=== PATIENT | male | born 1995 | race Caucasian/White ===

== ENCOUNTER 2016-12-18 17:56 | Emergency (ER) | payer OTHER ==
[~2016-12-18] VITALS: Ht 180.3 cm; Wt 79.0 kg
[~2016-12-18 17:56] MED LIST: IBUP600T26 PO; Z.0.NO CURRENT MEDS
[2016-12-18 17:59] VITALS: BP 129/73; PULSE 110; RESP 20; TEMP 97.8; O2SAT 96
[2016-12-18] MEDS ORDERED: DICL75TA PO (18:26)
[2016-12-18] MEDS ORDERED: IBUPROFEN 800 MG TAB PO ONE (18:30)
--- NOTE | 2016-12-18 18:34 | PD ---
HPI Chief Complaint: Injury Time Seen by Provider: 18:28 Travel History International Travel<30 days: No Contact w/Intl Traveler<30days: No Traveled to known affect area: No History of Present Illness HPI 20-year-old [id number] [place] [employer] presents emergency department with complaints of left shoulder dislocation. The patient states that he has had a left shoulder dislocation in the past. He states that he occasionally gets subluxations of the shoulder but spontaneously reduces on its own. He states that he was in a training class today when his left shoulder dislocated. He states that he has not been able to reduce it. He denies any numbness, tingling or weakness. Pain is mild to moderate. Worse with movement. Some relief with holding his arm still. PFSH Past Medical History Narrative Medical Left shoulder dislocation, asthma as child Asthma: Yes Diminished Hearing: No Respiratory: Yes (ASTHMA A CHILD) Immunizations Current: Yes Tetanus Vaccination: < 5 Years Past Surgical History Surgical History: No Previous Surgery Social History Alcohol Use: No Tobacco Use: No Substance Use: No Allergies-Medications (Allergen,Severity, Reaction): Coded Allergies: No Known Allergies (Verified , 12/18/16) Reported Meds & Prescriptions Reported Meds & Active Scripts Active Diclofenac Sodium DR (Diclofenac Sodium) 75 Mg Tabdr 75 Mg PO BID Review of Systems Except as stated in HPI: all other systems reviewed are Neg Physical Exam Narrative GENERAL: This is a well-nourished, well-developed patient, in no apparent distress. SKIN: No rashes, ecchymoses or lesions. Warm and dry. HEAD: Atraumatic. Normocephalic. EYES: PERRL, EOMI, no discharge or injection. No scleral icterus. EARS: Clear NOSE: Nasal turbinates appear normal. THROAT: Mucosa pink and moist. Airway patent. NECK: Trachea midline. supple, moves head freely. LUNGS: Clear to auscultation. CV: Regular in rhythm. ABDOMEN: Soft nontender. EXT: No clubbing cyanosis or edema. Examination the left shoulder reveals an obvious anterior dislocation. Patient has anterior fullness in the pectoral region with a void glenohumeral joint. Patient has no pain in the elbow, wrist or hand. He has intact median/ulnar/radial nerves. Data Data Last Documented VS Vital Signs Date Time Temp Pulse Resp B/P Pulse Ox O2 Delivery O2 Flow Rate FiO2 12/18/16 17:59 97.8 110 20 129/73 96 Room Air Orders Shoulder, Limited(2vws) (12/18/16 18:23) Ice/Cold Pack (12/18/16 18:23) Splint Or Brace Apply/Monitor (12/18/16 18:23) Ibuprofen (Motrin) (12/18/16 18:30) Sling And Swathe (12/18/16 ) MDM Medical Decision Making Medical Screen Exam Complete: Yes Emergency Medical Condition: Yes Medical Record Reviewed: Yes Interpretation(s) Left shoulder: Positive reduction of the left shoulder dislocation. No obvious fracture identified. Differential Diagnosis MDM: High Differential diagnoses: Fracture, sprain, strain, dislocation, contusion, neurovascular injury Narrative Course Patient has reduction of the left shoulder dislocation. He is placed in a sling and swath. Ice pack applied. Motrin 800 mg by mouth. He sent for a post reduction x-ray. Procedures Procedure Narrative Left anterior shoulder dislocation: Initial attempts with the patient sitting up using scapular manipulation have been unsuccessful. The patient is then laid down in the supine position. Milch maneuver with positive reduction of the left shoulder dislocation. Patient has immediate improvement of his pain. He is placed in a sling and swath. Ice pack applied. Patient is reexamined and is neurovascular intact. Diagnosis Primary Impression: Anterior dislocation of left shoulder Qualified Code: S43.015A - Anterior dislocation of left shoulder, initial encounter Patient Instructions: General Instructions Departure Forms: Tests/Procedures, Work Release Special Instructions: No work 3 days. Then no use of the left arm until released by orthopedics. Additional Instructions: Rest. Sling and swath. Ice for the next few days. Diclofenac. Follow-up with workman's comp orthopedic next week. Return to the ER if any problems. Med/Other Pt SpecificInfo: Prescription(s) given Scripts Diclofenac Sodium DR 75 Mg Tabdr75 Mg PO BID #30 TAB Prov:Susan Ko MD 12/18/16 Disposition: 01 DISCHARGE HOME Condition: Stable Rivas Driver December 18, 2016 18:34 Rivas Driver December 18, 2016 18:34
--- NOTE | 2016-12-18 19:13 | RADRPT ---
EXAM DATE/TIME: 12/18/2016 18:35 [facility] COMPARISON: No previous studies available for comparison. INDICATIONS : Post reduction left shoulder; fall. MEDICAL HISTORY : None. SURGICAL HISTORY : None. ENCOUNTER: Initial ACUITY: 1 day PAIN SCORE: 4/10 LOCATION: Left shoulder. FINDINGS: Two view examination of the left shoulder demonstrates no evidence of fracture or dislocation. The g lenohumeral and acromioclavicular joints are maintained. Bony mineralization is normal. CONCLUSION: No fracture or subluxation demonstrated. Mark Fernández MD on December 18, 2016 at 19:11 Board Certified Radiologist. This report was verified electronically.
[2016-12-19] MEDS ORDERED: TRAM50TA PO (02:59)
== END 2016-12-18 19:39 | disposition home or self-care (01) ==
LOC: NEPK 17:56
DX: S43.015A Anterior dislocation of left humerus, initial encounter (principal); X58.XXXA Exposure to other specified factors, initial encounter; Y93.9 Activity, unspecified; Y92.89 Other specified places as the place of occurrence of the external cause; Y99.0 Civilian activity done for income or pay
CPT/HCPCS: 23650; 73030

== ENCOUNTER 2016-12-19 01:00 | Emergency (ER) | payer OTHER ==
[~2016-12-19] VITALS: Ht 180.3 cm; Wt 81.0 kg
[~2016-12-19 01:00] MED LIST changes: +DICL75TA PO; -IBUP600T26 PO; -Z.0.NO CURRENT MEDS
[2016-12-19 01:08] VITALS: BP 133/81; PULSE 85; RESP 16; TEMP 97.7; O2SAT 99
[2016-12-19] MEDS ORDERED: SODIUM CHLOR 0.9% 1000 ML INJ 1,000 ML IV ONE (02:30)
[2016-12-19] MEDS ORDERED: PROPOFOL 200 MG/20 ML AMP IV ONE (02:30)
--- NOTE | 2016-12-19 02:35 | RADHPO ---
EXAM DATE/TIME: 12/19/2016 02:19 [facility] COMPARISON: No previous studies available for comparison. INDICATIONS : Left shoulder pain post fall 1 hour ago MEDICAL HISTORY : None. SURGICAL HISTORY : None. ENCOUNTER: Initial ACUITY: 1 day PAIN SCORE: 10/10 LOCATION: Left shoulder FINDINGS: Examination of the left shoulder demonstrates no evidence of fracture. On this single is difficult to rule out an anterior-inferior shoulder dislocation Bone mineralization is normal. The acromioclavi cular joint is intact. No foreign body is identified. CONCLUSION: On this single view it is difficult to rule out an anterior-inferior shoulder dislocation. Ronaldo Cunha MD on December 19, 2016 at 2:33 Board Certified Radiologist. This report was verified electronically.
[2016-12-19 02:55] VITALS: O2SAT 100
[2016-12-19] MEDS ORDERED: TRAM50TA PO (02:59)
--- NOTE | 2016-12-19 03:03 | PD ---
HPI Chief Complaint: Musculoskeletal Complaint Time Seen by Provider: 02:04 Travel History International Travel<30 days: No Contact w/Intl Traveler<30days: No Traveled to known affect area: No History of Present Illness HPI 20-year-old male presents to the emergency department by private transportation for complaint of left shoulder pain. Patient reports he thinks he has had recurrent dislocation of the left shoulder. Patient states for some time he's had issues with recurrent subluxation of the shoulder. An patient reports that was before has had dislocation of the shoulder with spontaneous reduction. 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 Patient was seen in the emergency department [facility] and was identified to have a dislocated shoulder was reduced without difficulty. She was given prescription for ibuprofen. Patient is encouraged to follow-up with his Worker's Comp. provider for follow-up recommendation and given a sling and swath. Patient states a and swath was too large for him so he just with a sling. Patient states he fell asleep and when he awakened his left upper extremity was stretched out above him and he noticed severe pain and the step-off deformity again. Patient returns to the emergency department for recurrent dislocation of the left shoulder. Patient denies any left upper extremity numbness tingling or weakness. Patient is right-handed. Patient denies other concerns or other injuries. PFSH Past Medical History Narrative Medical Asthma, shoulder dislocation; no surgery; no tobacco use; nursing notes reviewed Asthma: Yes Diminished Hearing: No Respiratory: Yes (ASTHMA A CHILD) Immunizations Current: Yes Tetanus Vaccination: < 5 Years ?: Not Social History Alcohol Use: No Tobacco Use: No Substance Use: No Allergies-Medications (Allergen,Severity, Reaction): Coded Allergies: No Known Allergies (Verified , 12/18/16) Reported Meds & Prescriptions Reported Meds & Active Scripts Active Tramadol (Tramadol HCl) 50 Mg Tab 50 Mg PO Q6H PRN Diclofenac Sodium DR (Diclofenac Sodium) 75 Mg Tabdr 75 Mg PO BID Review of Systems Except as stated in HPI: all other systems reviewed are Neg General / Constitutional: No: Fever, Chills HENT: No: Congestion Cardiovascular: No: Chest Pain or Discomfort Respiratory: No: Shortness of Breath Gastrointestinal: No: Abdominal Pain Genitourinary: No: Flank Pain Musculoskeletal: Positive: Limited ROM (left shoulder), Pain Skin: No Rash ( left shoulder) Neurologic: No: Weakness, Paresthesia Hematologic/Lymphatic: No: Lymph Node Enlargement Physical Exam Narrative GENERAL: Well-developed well-nourished male in no acute distress no respiratory distress; gcs 15 SKIN: Warm and dry. HEAD: Normocephalic. EYES: No scleral icterus. No injection or drainage. NECK: Supple, trachea midline. No JVD or lymphadenopathy. CARDIOVASCULAR: Regular rate and rhythm without murmurs, gallops, or rubs. RESPIRATORY: Breath sounds equal bilaterally. No accessory muscle use. GASTROINTESTINAL: Abdomen soft, non-tender, nondistended. MUSCULOSKELETAL: No cyanosis, or edema. Step-off deformity left shoulder distally extremity is neurovascular tendon intact brisk capillary refill less than 2 seconds per digit radial ulnar pulses 2+ to palpation intact thumb abduction and sensation left index finger intact wrist extension and first rib space sensation intact abduction and adduction of digits and ulnar sensation. BACK: Nontender without obvious deformity. No CVA tenderness. Data Data Last Documented VS Vital Signs Date Time Temp Pulse Resp B/P Pulse Ox O2 Delivery O2 Flow Rate FiO2 12/19/16 04:21 74 16 159/82 99 12/19/16 02:55 Nasal Cannula 4.00 12/19/16 01:08 97.7 Orders ^ Saline Lock (12/19/16 02:05) NPO (12/19/16 02:05) Propofol 200 Mg/20 Ml Inj (Diprivan 200 (12/19/16 02:30) Shoulder, One View (12/19/16 ) Sodium Chlor 0.9% 1000 Ml Inj (Ns 1000 M (12/19/16 02:30) Splint Or Brace Apply/Monitor (12/19/16 02:56) Shoulder, Limited(2vws) (12/19/16 ) Sling And Swathe (12/19/16 ) MDM Medical Decision Making Medical Screen Exam Complete: Yes Emergency Medical Condition: Yes Medical Record Reviewed: Yes Interpretation(s) Last Impressions Shoulder X-Ray 12/19/16 0000 Signed Impressions: Service Date/Time: Monday, December 19, 2016 03:06 - CONCLUSION: Unremarkable limited examination of the left shoulder. Ronaldo Cunha MD Shoulder X-Ray 12/19/16 0000 Signed Impressions: Service Date/Time: Monday, December 19, 2016 02:19 - CONCLUSION: On this single view it is difficult to rule out an anterior-inferior shoulder dislocation. Ronaldo Cunha MD Differential Diagnosis dislocation, fracture, subluxation, brachial plexus injury Narrative Course Patient desirous of attempted reduction without IV access; using milch maneuver attempt was made to reduce the anterior displaced humeral head--this was unsuccessful and procedural sedation was recommended--patient agreed to procedural sedation After procedural sedation with propofol and patient an optimal position abduction external rotation maneuver was attempted without success and therefore followed up with gentle traction countertraction maneuver was readily reduced humeral head into the glenoid fossa. Imaging study was performed. No evidence for fracture and successful reduction of dislocation. Patient was maintained in a sling and swath. Patient was monitored until completely awake and stable for outpatient management. Patient is discharged in the care of significant other. Procedures Procedure Narrative After the risks and benefits were discussed the following procedure was performed: MODERATE SEDATION: The patient was placed on a director cardiac and pulse oximetry. An ambu bag and suction was immediately available at bedside. The patient was monitored by the nurse. Oxygen saturation, heart rate and blood pressure were monitored. Procedural sedation was acheived using propofol 150 mg. The patient was observed until awake and alert. Procedural Sedation time in attendance was 35 minutes. Patient was placed in optimal position supine and after acceptable procedural sedation gentle manipulation of the shoulder with abduction and external rotation was admitted attempted with some resistance therefore repositioning and maneuvering was gentle traction countertraction was performed with successful reduction of the anterior dislocation of the humeral head. Postreduction capillary refill brisk and 2 seconds and radial volar pulses 2+ to palpation. Shortly thereafter patient was able to perform 5 over 5 dye room helper strength. Postreduction film was ordered and identifies successful reduction of shoulder dislocation. No fracture identified. Procedural time was sedation 10 minutes. Diagnosis Primary Impression: Anterior dislocation of left shoulder Qualified Code: S43.015D - Anterior dislocation of left shoulder, subsequent encounter Referrals: Orthopedist call for appointment Telehealth Case Manager orthopedist Александр Pinto or your Worker's Comp Provider Patient Instructions: Moderate Sedation (ED), General Instructions Departure Forms: Tests/Procedures, Work Release Special Instructions: no work x 2days; no use of left upper extremity until Orthopedic evaluation Additional Instructions: Wear sling and swath left upper extremity until evaluated by orthopedist Take pain medication as needed as prescribed be aware may impair judgment or delay reaction time and cannot take this medication mild driving or handling heavy equipment May use [id number] ibuprofen/Advil/Motrin every 6-8 hours as needed for pain associated with inflammation Use ice intermittently to left shoulder for first 12-24 hours Return to the emergency department for any concerns or change in condition Med/Other Pt SpecificInfo: Prescription(s) given Scripts Tramadol 50 Mg Tab50 Mg PO Q6H PRN (PAIN) #10 TAB Ref 0 Prov:Maryanne Esquivel MD 12/19/16 Disposition: 01 DISCHARGE HOME Condition: Stable Maryanne Esquivel MD December 19, 2016 03:03
--- NOTE | 2016-12-19 03:27 | RADHPO ---
EXAM DATE/TIME: 12/19/2016 03:06 [facility] COMPARISON: No previous studies available for comparison. INDICATIONS : Post reduction left shoulder MEDICAL HISTORY : None. SURGICAL HISTORY : None. ENCOUNTER: Initial ACUITY: 1 day PAIN SCORE: 0/10 LOCATION: Left shoulder FINDINGS: Two view examination of the left shoulder demonstrates no evidence of fracture or dislocation. The g lenohumeral and acromioclavicular joints are maintained. Bony mineralization is normal. CONCLUSION: Unremarkable limited examination of the left shoulder. Ronaldo Cunha MD on December 19, 2016 at 3:25 Board Certified Radiologist. This report was verified electronically.
[2016-12-19 04:20] VITALS: BP 165/82; PULSE 78; RESP 16; O2SAT 99
[2016-12-19 04:21] VITALS: BP 159/82
== END 2016-12-19 04:24 | disposition home or self-care (01) ==
LOC: PHED 01:00
DX: M24.412 Recurrent dislocation, left shoulder (principal); J45.909 Unspecified asthma, uncomplicated; Z79.899 Other long term (current) drug therapy
CPT/HCPCS: 23650; 73020; 73030; 94770; 96360; 99152; 99285; J7030